=== PATIENT | female | born 1975 | race Caucasian/White ===

== ENCOUNTER 2022-11-11 15:26 | Emergency (ER) | payer OTHER, SELFPAY ==
[2022-11-11] VITALS (9 sets, daily range): BP systolic 123–154; BP diastolic 73–92; PULSE 74–100; RESP 18–20; TEMP 36.6–36.8; O2SAT 99–100; BMI 24.3
--- NOTE | 2022-11-11 15:38 | CT_ITS ---
PROCEDURE INFORMATION: Exam: CT Abdomen And Pelvis With Contrast Exam date and time: 11/11/2022 4:41 PM Age: 47 years old Clinical indication: Abdominal pain; Localized; Left lower quadrant (llq); Additional info: Llq pain TECHNIQUE: Imaging protocol: Computed tomography of the abdomen and pelvis with contrast. Radiation optimization: All CT scans at this facility use at least one of these dose optimization techniques: automated exposure control; mA and/or kV adjustment per patient size (includes targeted exams where dose is matched to clinical indication); or iterative reconstruction. Contrast material: ISOVUE; Contrast volume: 75 ml; Contrast route: IV; REPORTING DATA: Count of CT and Cardiac NM exams in prior 12 months: This patient has received 0 known CTs and 0 known cardiac nuclear medicine studies in the 12 months prior to the current study. COMPARISON: No relevant prior studies available. FINDINGS: Lungs: Multiple calcific densities of the spleen are likely related to prior granulomatous process. Liver: Multiple hypoattenuating circumscribed structures of the liver compatible with simple hepatic cysts with the largest measuring 1.6cm in diameter. Gallbladder and bile ducts: Normal. No calcified stones. No ductal dilation. Pancreas: Normal. No ductal dilation. Spleen: Normal. No splenomegaly. Adrenal glands: Normal. No mass. Kidneys and ureters: Normal. No hydronephrosis. Stomach and bowel: Unremarkable. No obstruction. No mucosal thickening. Appendix: No evidence of appendicitis. Intraperitoneal space: Low volume fluid at the posterior cul-de-sac. Vasculature: Mild calcific atherosclerotic disease is scattered throughout the abdominal aorta without aneurysmal dilatation. Lymph nodes: Unremarkable. No enlarged lymph nodes. Urinary bladder: Unremarkable as visualized. Reproductive: The uterus appears surgically absent. Cystic structure associated with the left ovary measures 3.4 cm in diameter with internal density of 16 Hounsfield units. Bones/joints: Mild loss of intervertebral disc space with degenerative changes at L3 through S1. Soft tissues: Normal. IMPRESSION: Cystic structure associated with the left ovary measures 3.4 cm in diameter with internal density of 16 Hounsfield units. Recommend further evaluation with ultrasound to include duplex imaging to evaluate for ovarian torsion.
--- NOTE | 2022-11-11 15:58 | HMH.EDGENADL ---
Discharge Plan Disposition Patient Disposition: Home, Self-Care Prescriptions Prescriptions: New naproxen 500 mg tablet 500 mg PO Q12H PRN (Reason: pain) Qty: 20 0RF ondansetron 4 mg tablet,disintegrating 4 mg PO Q8H PRN (Reason: Nausea) Qty: 15 0RF No Action levothyroxine 25 mcg tablet 25 mcg PO AM Label Comments: TAKE 1 TABLET BY MOUTH ONCE DAILY cyanocobalamin (vitamin B-12) 1,000 mcg/mL solution 1,000 mcg IM MONTHLY Label Comments: INJECT 1 ML ONCE EVERY MONTH cholecalciferol (vitamin D3) 1,250 mcg (50,000 unit) capsule 1,250 mcg PO WEEKLY Label Comments: TAKE 1 CAPSULE BY MOUTH ONCE A WEEK Qulipta 60 mg tablet 60 mg PO DAILY Label Comments: TAKE 1 TABLET BY MOUTH ONCE DAILY Referrals Follow up/Referrals: Erick Zaidi MD [Primary Care Provider] - See instructions Activity Restrictions/Add. Instructions Additional Instructions/Restrictions: Return for worsening pain vomiting or any other concerns within the next 8 hours otherwise follow-up with your primary care physician within the next few days and follow-up with your public address system mechanic within the next few days for evaluation of the ovarian cyst Clinical Impressions Clinical Impression: Ovarian cyst Discharge ED Provider: Jonatan Luna General Adult HPI General Chief complaint: Abdominal Pain Stated complaint: lower left abd pain Time Seen by Provider: 11/11/22 15:30 Mode of Arrival: Ambulatory Source of Information: Patient Limitations: No Limitations Description of Symptoms (Recalled from ER Triage Doc. by RN): 47 F presents from home. States she was mowing and had a sudden LLQ abdominal pain that started without trauma. Reports waves of nausea. Very uncomfortable in triage. Attending brought to bedside History of Present Illness HPI narrative: 47-year-old female presents with sudden onset left lower quadrant pain. She says it is sharp radiating to the flank comes on in waves with nausea. No history of kidney stone or ovarian etiology. She has had nausea no vomiting or diarrhea. No bleeding per rectum. No fever no dysuria or hematuria. Has not had similar issues to this in the past. Related Data Home Medications Medication Instructions Recorded Confirmed atogepant 60 mg tablet (Qulipta) 60 mg PO DAILY Migraine 11/11/22 11/11/22 cholecalciferol (vitamin D3) 1,250 1,250 mcg PO WEEKLY Supplement 11/11/22 11/11/22 mcg (50,000 unit) capsule cyanocobalamin (vitamin B-12) 1,000 mcg IM MONTHLY Supplement 11/11/22 11/11/22 1,000 mcg/mL injection solution levothyroxine 25 mcg tablet 25 mcg PO AM Thyroid 11/11/22 11/11/22 Previous Rx's Medication Instructions Recorded naproxen 500 mg tablet 500 mg PO Q12H PRN pain #20 tabs 11/11/22 ondansetron 4 mg disintegrating 4 mg PO Q8H PRN Nausea #15 tabs 11/11/22 tablet Allergies Allergy/AdvReac Type Severity Reaction Status Date / Time Sulfa (Sulfonamide Allergy Verified 03/12/18 15:37 Antibiotics) [facility] Disclaimer: The information contained in this section may have been updated after the patient was seen, as this information can be updated by other users. Social History Smoking Status: Never smoker alcohol intake: never current occupational status: employed Travel in the last 8 weeks: None ROS Obtained: Yes All systems reviewed & no additional complaints except as documented Constitutional Constitutional: Denies fatigue Eyes Eyes: Denies dry eyes ENT Ears, Nose, Mouth, and Throat: Denies dry mouth Cardiovascular Cardiovascular: Denies dyspnea Respiratory Respiratory: Denies dyspnea Gastrointestinal Gastrointestingal: Denies diarrhea Genitourinary Female Genitourinary: Denies hematuria Musculoskeletal Musculoskeletal: Denies joint swelling Integumentary/Breasts Skin/Breast: Denies dry skin and Denies rash Neurologic Neurologic: Denies confusion Endocrine Endocrine: Denies fatigue Hemato
[2022-11-11 16:50] LABS: Microscopic, Urine URINE MICROSCOPIC (MICROSCOPIC)
[2022-11-11 16:55] LABS: Basophils % 0.3 % (0.1-2.0); Chloride 96 mmol/L (98-107); Eosinophils # 0.1 K/mm3 (0.0-0.4); Eosinophils % 0.7 % (0.1-12.0); Hemoglobin 14.6 g/dL (12.2-16.2); Lymphocytes # 1.4 K/mm3 (0.7-4.5); Mean Corpuscular HGB Conc 33.3 g/dL (31.8-35.4); Mean Corpuscular Hemoglobin 29.5 pg (27.0-31.2); Mean Corpuscular Volume 88.6 fl (81-99); Mean Platelet Volume 9.8 fl (7.4-10.4); Monocytes # 0.4 K/mm3 (0.1-1.0); Monocytes % 4.4 % (1.7-9.3); Neutrophils # 7.3 K/mm3 (1.8-7.8); Neutrophils % 79.6 % (37.0-80.0); Platelet Count 223 K/mm3 (142-424); Red Blood Count 4.96 M/mm3 (4.20-5.40); Red Cell Distribution Width 13.3 % (11.5-17.5); White Blood Count 9.2 K/mm3 (4.8-10.8)
[2022-11-11 16:56] LABS: Sodium 136 mmol/L (136-145)
[2022-11-11 16:58] LABS: Alanine Aminotransferase 25 U/L (12-78); Alkaline Phosphatase 59 U/L (38-126); Aspartate Amino Transferase 28 U/L (14-36); Bilirubin,Total 0.4 mg/dl (0.2-1.3); Blood Urea Nitrogen 18 mg/dl (7-17); Carbon Dioxide 29 mmol/L (22.0-30.0); Creatinine Clearance Estimated 95 mL/min (50-200); Estimated Glomerular Filt Rate 90 ml/min (>60); GFR (African American) 109 ML/MIN (>60)
[2022-11-11 16:59] LABS: Albumin Level 4.2 g/dl (3.5-5.0); Albumin/Globulin Ratio 1.5 (1.1-1.8); Calcium 9.5 mg/dl (8.4-10.2); Globulin 2.8 g/dL (1.3-3.2); Glucose 120 mg/dl (74-100)
[2022-11-11 17:01] LABS: Appearance,Urine CLEAR (Clear); Bilirubin,Urine Negative (Negative); Blood, Urine TRACE-I (Negative); Color,Urine YELLOW (Yellow); Glucose,Urine (UA) Negative (Negative); Ketones,Urine 1+ (Negative); Leukocyte Esterase,Urine Negative (Negative); Nitrate,Urine Negative (Negative); PH,Urine 5.5 (5.0-8.5); Protein,Urine Negative (Negative); Specific Gravity, Urine >= 1.030 (1.005-1.030); Urobilinogen,Urine 0.2 EU/dl (0.2)
[2022-11-11 17:02] LABS: HCG Qualitative, Serum Negative (Negative)
[2022-11-11 17:20] LABS: Bacteria,Urine 1+ /lpf; RBC,Urine Occasional #/hpf (0-3)
--- NOTE | 2022-11-11 18:05 | PC.NURSE ---
rad staff reports ct scan is being read at this time per vrad
--- NOTE | 2022-11-11 18:15 | US_ITS ---
PROCEDURE INFORMATION: Exam: US Duplex Artery or Vein of the Abdominal and/or Reproductive Organs, Limited Ovaries Exam date and time: 11/11/2022 6:26 PM Age: 47 years old Clinical indication: Pelvic pain; Prior surgery; Surgery date: 6+ months; Surgery type: Hysterectomy; Additional info: Ovarian torsion TECHNIQUE: Imaging protocol: Real-time duplex ultrasound scan of the arterial or venous flow with rivera scale, color Doppler flow and spectral waveform analysis with image documentation. Limited duplex exam focused on the ovaries. Duplex exam was performed to evaluate for torsion and other vascular conditions. COMPARISON: CT ABDOMEN PELVIS W CON 11/11/2022 4:41 PM FINDINGS: Right ovary/adnexa: Normal duplex of the ovary. Normal Doppler waveforms and color flow. No evidence of ovarian torsion. Left ovary/adnexa: The left ovary has normal color Doppler echoes. The left ovary has normal arterial and venous spectral waveforms. IMPRESSION: No ultrasound evidence of left ovarian torsion. PROCEDURE INFORMATION: Exam: US Pelvis, Transvaginal Exam date and time: 11/11/2022 6:26 PM Age: 47 years old Clinical indication: Pelvic pain; Prior surgery; Surgery date: 6+ months; Surgery type: Hysterectomy; Additional info: Ovarian torsion TECHNIQUE: Imaging protocol: Real-time transvaginal pelvic ultrasound with image documentation. Transvaginal imaging was used for better evaluation of the endometrium, adnexa, and/or cervix. COMPARISON: CT ABDOMEN PELVIS W CON 11/11/2022 4:41 PM FINDINGS: Uterus: Uterus is normal. Endometrial stripe is normal. Right ovary/adnexa: Normal. No mass. Normal ovarian blood flow. Left ovary/adnexa: Left ovary measures 3.5 x 2.9 x 2.4 cm with anechoic cystic structure measuring 2.3 cm in diameter. Intraperitoneal space: No free fluid. IMPRESSION: Favored dominant follicle of the left ovary. No follow-up required.
--- NOTE | 2022-11-11 18:27 | PC.NURSE ---
Abi in radiology notified of trans-vag order
--- NOTE | 2022-11-11 18:48 | PC.NURSE ---
pt return from u/s at this time via wheelchair.
--- NOTE | 2022-11-11 18:57 | PC.NURSE ---
DRYING MACHINE TENDER paged for ER
--- NOTE | 2022-11-11 19:01 | PC.NURSE ---
Dr. Luna speaking with DR. Olivares
== END 2022-11-11 19:34 | disposition home or self-care (01) ==
PROVIDERS: Emergency Provider Emergency Medicine; PCP Orthopaedic Surgery Adult Reconstructive Orthopaedic Surgery
DX: R10.32 Left lower quadrant pain (principal); N83.202 Unspecified ovarian cyst, left side
CPT/HCPCS: 74177; 76830; 80053; 81001; 84703; 85025; 96361; 96374; 96375; 99285; J2405; Q9967

== ENCOUNTER 2023-12-06 13:57 | Outpatient (CLI) | payer OTHER, SELFPAY ==
--- NOTE | 2023-12-06 14:00 | XR_ITS ---
FINAL REPORT CLINICAL HISTORY: Foot Pain COMPARISON: None FINDINGS: RIGHT FOOT: Three views of the right foot were obtained. There is no acute fracture or dislocation. Mild degenerative changes present. There is no soft tissue abnormality. IMPRESSION: No acute bony abnormality. Reviewed, Interpreted and Dictated by Zachary Murphy III, MD Transcribed by Trinh Dubon Authenticated and [facility]
--- NOTE | 2023-12-06 14:00 | XR_ITS ---
FINAL REPORT CLINICAL HISTORY: Foot Pain COMPARISON: None FINDINGS: LEFT FOOT: Three views of the left foot were obtained. There is no acute fracture or dislocation. Mild degenerative changes present. There is no soft tissue abnormality. IMPRESSION: No acute bony abnormality. Reviewed, Interpreted and Dictated by Zachary Murphy III, MD Transcribed by Trinh Dubon Authenticated and [facility]
== END 2023-12-06 23:59 | disposition home or self-care (01) ==
LOC: RAD 13:57
PROVIDERS: PCP Family Medicine; Visit Provider Podiatrist
DX: M79.671 Pain in right foot (principal); M79.672 Pain in left foot
CPT/HCPCS: 73630

== ENCOUNTER 2023-12-30 19:11 | Emergency (ER) | payer OTHER, SELFPAY ==
[2023-12-30 19:20] VITALS: BP 141/81; PULSE 106; RESP 22; TEMP 36.8; O2SAT 99; BMI 23.4
--- NOTE | 2023-12-30 19:51 | EXP.UTC ---
Discharge Plan Disposition Patient Disposition: Home, Self-Care Condition: Good Prescriptions Prescriptions: New fluconazole [Diflucan] 100 mg tablet 100 mg PO DAILY Qty: 3 0RF No Action acyclovir 400 mg tablet 400 mg PO DAILY Patient Comments: TAKE 1 TABLET BY MOUTH 4 TIMES DAILY FOR 5 DAYS NEEDED FOR COLD SORES doxycycline hyclate 100 mg capsule 100 mg PO BID 10 Days Qty: 20 0RF levothyroxine 25 mcg tablet 25 mcg PO AM Patient Comments: TAKE 1 TABLET BY MOUTH ONCE DAILY cyanocobalamin (vitamin B-12) 1,000 mcg/mL solution 1,000 mcg IM MONTHLY Patient Comments: INJECT 1 ML ONCE EVERY MONTH Qulipta 60 mg tablet 60 mg PO DAILY Patient Comments: TAKE 1 TABLET BY MOUTH ONCE DAILY Referrals Follow up/Referrals: Leno Smith [Primary Care Provider] - See instructions Activity Restrictions/Add. Instructions Additional Instructions/Restrictions: Follow up tomorrow with Dr. Mtz. Stop Doxycycline. Clinical Impressions Clinical Impression: Radha infection of genital region, Wound cellulitis Instructions Patient Instructions: DI for Ingrown Toenail Removal, DI for Vaginal Yeast Infection Discharge ED Provider: Doris Washington [facility] General Stated complaint: all over rash Mode of Arrival: Ambulatory Source of Information: Patient Limitations: No Limitations Time Seen by Provider: 12/30/23 19:49 Description of Symptoms (Recalled from Triage Doc. by RN): PATIENT STATES SHE HAS BEEN SEEING DR. MTZ FOR A TOE INFECTION AND IS CURRENTLY TAKING DOXYCYCLINE. SHE REPORTS HAVING A RASH ALL OVER HER BODY AND THINKS HER TOE INFECTION IS GETTING WORSE HEENT Symptoms (Recalled from RN notes): No Resp Symptoms (Recalled from RN notes): No Skin Symptoms (Recalled from RN notes): Yes MS Symptoms (Recalled from RN notes): No Functional Status (Recalled from RN notes): WNL History of Present Illness Provider Complaint: PATIENT STATES SHE HAS BEEN SEEING DR. MTZ FOR A TOE INFECTION AND IS CURRENTLY TAKING DOXYCYCLINE. SHE REPORTS HAVING A RASH ALL OVER HER BODY AND THINKS HER TOE INFECTION IS GETTING WORSE Related Data Home Medications Medication Instructions Recorded Confirmed atogepant 60 mg tablet (Qulipta) 60 mg PO DAILY Migraine 11/11/22 12/30/23 cyanocobalamin (vitamin B-12) 1,000 mcg IM MONTHLY Supplement 11/11/22 12/30/23 1,000 mcg/mL injection solution levothyroxine 25 mcg tablet 25 mcg PO AM Thyroid 11/11/22 12/30/23 acyclovir 400 mg tablet 400 mg PO DAILY 12/06/23 12/30/23 Previous Rx's Medication Instructions Recorded doxycycline hyclate 100 mg capsule 100 mg PO BID 10 days #20 caps 12/27/23 fluconazole 100 mg tablet 100 mg PO DAILY #3 tabs 12/30/23 (Diflucan) Allergies Allergy/AdvReac Type Severity Reaction Status Date / Time clindamycin Allergy Verified 12/30/23 19:42 Sulfa (Sulfonamide Allergy Verified 12/21/23 14:51 Antibiotics) Worker's Comp Is this a Worker's Comp case?: No [facility] Disclaimer: The information contained in this section may have been updated after the patient was seen, as this information can be updated by other users. Medical History Migraine Ovarian cyst Hypothyroidism Surgical History S/P partial hysterectomy Family History Mother Diabetes Grandmother Heart disease Social History Smoking Status: Never smoker alcohol intake: never current occupational status: employed Travel in the last 8 weeks: None ROS Obtained: Yes All systems reviewed & no additional complaints except as documented Constitutional Constitutional: Reports system reviewed and no additional complaints, except as documented Eyes Eyes: Reports system reviewed and no additional complaints, except as documented ENT Ears, Nose, Mouth, and Throat: Reports system reviewed and no additional complaints, except as documented Cardiovascular Cardiovascular: Reports system reviewed and no additional complaints, except as documented Respiratory Respiratory: Reports system reviewed and no additional complaints, except as documented Gastrointestinal Gastrointestingal: Reports system reviewed and no additional complaints, except as documented Genitourinary Female Genitourinary: Reports system reviewed and no additional complaints, except as documented, Reports vaginal discharge and Reports vaginal pruritus Musculoskeletal Musculoskeletal: Reports system reviewed and no additional complaints, except as documented and Reports as per HPI Comments: left toe redness and swelling Integumentary/Breasts Skin/Breast: Reports system reviewed and no additional complaints, except as documented and Reports rash Comments: generalized over body Neurologic Neurologic: Reports system reviewed and no additional complaints, except as documented Endocrine Endocrine: Reports system reviewed and no additional complaints, except as documented Hematologic/Lymphatic Henatologic/Lymphatic: Reports system reviewed and no additional complaints, except as documented Allergic/Immunologic Allergic/Immunologic: Reports system reviewed and no additional complaints, except as documented Physical Exam General General appearance: alert and anxious Head Head exam: atraumatic and normocephalic Eye Eye exam: Present normal appearance ENT ENT exam: Present normal exam and normal oropharynx Neck Neck exam: Present normal inspection Chest Chest inspection: Present normal inspection and symmetric chest wall rise Respiratory Respiratory exam: Present normal lung sounds bilaterally Cardiovascular Cardiovascular exam: Present regular rate, normal rhythm and normal heart sounds Abdominal Exam Abdominal exam: Present soft and normal bowel sounds Extremities Exam Extremities exam: Present tenderness and edema Expanded Lower Extremity Exam Left: Hip/Pelvis exam: Present normal inspection Upper leg exam: Present normal inspection Knee exam: Present normal inspection Foot/toe exam: Present tenderness, swelling, erythema and other (great toe redness area marked.) Neurovascular/Tendon exam: Present normal capillary refill Gait: observed and limited by pain Back Exam Back exam: Present normal inspection Neurological Exam Neurological exam: Present alert and oriented X3 Psychiatric Psychiatric exam: Present normal affect and anxious Skin Skin exam: Present other (fine pin point rash generalized over body) Lymphatic Lymphatic Findings: no adenopathy Medical Decision Making Saji Inquiry Pt receiving controlled substance: No Saji was queried for this patient: No Vital Signs: 12/30/23 19:20 Temperature 98.2 F Temperature Source Oral Pulse Rate [Left Brachial] 106 H Respiratory Rate 22 Blood Pressure [Left Arm] 141/81 H Blood Pressure Mean [Left Arm] 101 Blood Pressure Source [Left Arm] Automatic Cuff Blood Pressure Position [Left Arm] Sitting 02 Sat by Pulse Oximetry 99 Oxygen Delivery Method Room Air Medical Decision Narrative: Toe redness marked. Area covered with a non-stick telfa and wrapped with Coban
[2023-12-30 20:25] VITALS: BP 141/81; PULSE 106; RESP 22; TEMP 36.8; O2SAT 99
== END 2023-12-30 20:28 | disposition home or self-care (01) ==
PROVIDERS: Emergency Provider Nurse Practitioner Family; PCP Family Medicine
DX: L03.032 Cellulitis of left toe (principal); B37.31 Acute candidiasis of vulva and vagina
CPT/HCPCS: 99204; 99212; G0463

== ENCOUNTER 2024-01-04 09:37 | Outpatient (CLI) | payer OTHER, SELFPAY ==
[2024-01-04 10:24] LABS: Basophils # 0.1 K/mm3 (0-0.2); Basophils % 1.3 % (0.1-2.0); Eosinophils # 0.1 K/mm3 (0.0-0.4); Eosinophils % 2.5 % (0.1-12.0); Hematocrit 44.3 % (37.0-47.0); Hemoglobin 15.2 g/dL (12.2-16.2); Lymphocytes # 0.9 K/mm3 (0.7-4.5); Lymphocytes % 23.2 % (10-50); Mean Corpuscular HGB Conc 34.2 g/dL (31.8-35.4); Mean Corpuscular Volume 87.5 fl (81-99); Mean Platelet Volume 9.4 fl (7.4-10.4); Monocytes # 0.3 K/mm3 (0.1-1.0); Monocytes % 7.8 % (1.7-9.3); Neutrophils # 2.4 K/mm3 (1.8-7.8); Neutrophils % 65.2 % (37.0-80.0); Platelet Count 254 K/mm3 (142-424); Red Blood Count 5.06 M/mm3 (4.20-5.40); Red Cell Distribution Width 13.9 % (11.5-17.5); White Blood Count 3.7 K/mm3 (4.8-10.8)
[2024-01-04 11:07] LABS: Chloride 108 mmol/L (98-107); Sodium 141 mmol/L (136-145)
[2024-01-04 11:09] LABS: Alanine Aminotransferase 20 U/L (12-78); Aspartate Amino Transferase 27 U/L (14-36); Blood Urea Nitrogen 21 mg/dl (7-17); Estimated Glomerular Filt Rate 77 ml/min (>60); GFR (African American) 93 ML/MIN (>60)
[2024-01-04 11:10] LABS: Albumin Level 4.3 g/dl (3.5-5.0); Albumin/Globulin Ratio 1.6 (1.1-1.8); Alkaline Phosphatase 67 U/L (38-126); Bilirubin,Total 0.8 mg/dl (0.2-1.3); Carbon Dioxide 27 mmol/L (22.0-30.0); Globulin 2.7 g/dL (1.3-3.2); Glucose 88 mg/dl (74-100)
[2024-01-04 11:16] LABS: C-Reactive Protein 1.4 mg/L (0-4)
[2024-01-04 14:57] LABS: Erythrocyte Sedimentation Rate 5 mm/hr (0-20)
== END 2024-01-04 23:59 | disposition home or self-care (01) ==
LOC: LAB 09:38
PROVIDERS: PCP Family Medicine; Visit Provider Podiatrist
DX: M20.11 Hallux valgus (acquired), right foot (principal); M20.12 Hallux valgus (acquired), left foot; L03.032 Cellulitis of left toe
CPT/HCPCS: 36415; 80053; 85025; 85651; 86140